=== PATIENT | female | born 1945 | race Caucasian/White ===

== ENCOUNTER 2021-08-08 09:53 | Outpatient (CLI) | payer MEDICARE, BC | END 2021-08-08 09:54 | disposition home or self-care (01) | LOC: CSHMRI 09:53 | PROVIDERS: ATTEND Orthopaedic Surgery | DX: M16.11 Unilateral primary osteoarthritis, right hip (principal); M94.8X8 Other specified disorders of cartilage, other site; M84.451A Pathological fracture, right femur, initial encounter for fracture; M25.451 Effusion, right hip ==

== ENCOUNTER 2022-05-24 10:42 | Outpatient (CLI) | payer MEDICARE, BC ==
[2022-05-24] MEDS ORDERED: Magnevist 469MG/ML 20 ML VIAL ONE (14:39)
== END 2022-05-24 10:43 | disposition home or self-care (01) ==
LOC: CSHMRI 10:42
PROVIDERS: ATTEND Specialist
DX: M51.17 Intervertebral disc disorders with radiculopathy, lumbosacral region (principal); M96.1 Postlaminectomy syndrome, not elsewhere classified; Z98.890 Other specified postprocedural states; M47.816 Spondylosis without myelopathy or radiculopathy, lumbar region
CPT/HCPCS: 72158; 82565; A9579

== ENCOUNTER 2023-04-10 15:00 | Outpatient (CLI) | payer MEDICARE, BC | END 2023-04-10 15:01 | disposition home or self-care (01) | LOC: CSHMRI 15:00 | PROVIDERS: ATTEND Nurse Practitioner Family | DX: M51.16 Intervertebral disc disorders with radiculopathy, lumbar region (principal); M48.061 Spinal stenosis, lumbar region without neurogenic claudication | CPT/HCPCS: 72148 ==

== ENCOUNTER 2023-08-04 10:17 | Outpatient (CLI) | payer MEDICARE, BC | END 2023-08-04 10:18 | disposition home or self-care (01) | LOC: CSHCT 10:17 | PROVIDERS: ATTEND Neurological Surgery | DX: M47.26 Other spondylosis with radiculopathy, lumbar region (principal) | CPT/HCPCS: 72131 ==

== ENCOUNTER 2023-12-05 13:15 | Outpatient (CLI) | payer MEDICARE, BC | END 2023-12-05 13:16 | disposition home or self-care (01) | LOC: CSHMRI 13:15 | PROVIDERS: ATTEND Neurological Surgery | DX: M54.2 Cervicalgia (principal); M47.812 Spondylosis without myelopathy or radiculopathy, cervical region | CPT/HCPCS: 72141 ==